=== PATIENT | female | born 1975 | race Caucasian/White ===

== ENCOUNTER 2016-03-17 10:57 | Inpatient (IN) | payer OTHER ==
[~2016-03-17] VITALS: Ht 157.5 cm; Wt 74.3 kg
--- NOTE | ~2016-03-17 | TXPLANREV ---
"PATIENT: RAGHU ZARATE | | [facility] UNIT #: [id number] | [address] AGE/SEX: 41 F : 71 | [address] | [place] [address] ADMIT/REG DATE: 03/17/16 | [facility] | Treatment Plan/Staffing Review Date: 07 APRIL 2016 Treatment plan was reviewed and determined appropriate as written: TREATMENT PLAN IS APPROPRIATE WRITTEN. Treatment plan was reviewed and the following changes/addition/deletions are necessary: NO CHANGES/ADDITIONS/DELETIONS ARE NECESSARY. Discharge plans were reviewed and determined appropriate as previously documented: DISCHARGE PLANS ARE APPROPRIATE PREVIOUSLY DOCUMENTED. Discharge plans were reviewed and determined to be as follows: TENTATIVE DISCHARGE DATE ISD 14 APRIL 2016. Other pertinent issues discussed during this staffing review include: CLIENT IS COMPLETING STEP ONE, WORKING ON LETTING GO OF THE NEED TO CONTROL & FEELINGS LETTERS. SHE CONTINUES TO GAIN INSIGHT EVIDENCED BY HER WILLINGNESS TO OWN DRINKING/ DRUGGING BEHAVIORS THAT HAVE NEGATIVELY IMPACTED HER LIFE. CLIENT'S SIGNIFICANT OTHER ATTENDED ONE SESSION OF FAMILY GROUP AND HER SON(S) PLAN TO ATTEND FAMILY EDUCATION ON 04/08. Staff Present: EUGENIA GOODRICH PRIMARY COUNSELOR: MELODIE BOOGIE [facility] Client Signature Counselor Signature Date Time "
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
--- NOTE | ~2016-03-17 | INDIVTXPLN ---
"PATIENT: BECKY ZARATE | | [facility] UNIT #: [id number] | [address] AGE/SEX: 41 F : 71 | [address] | [place] [address] ADMIT/REG DATE: 03/17/16 | [facility] | Individualized Treatment Plan Date: 01 APRIL 2016 Problem Statement/Issue Identified: BECKY IDENTIFIES A BELIEF IN GOD BUT HAS TURNED TO DRUGS/ALCOHOL TO HELP HER COPE WITH LIFE STRESSORS AND CHALLANGES. Goal: BECKY WILL WORK ON BUILDING A CLOSER, PERSONAL RELATIONSHIP WITH HER HIGHER POWER AND BEGIN TO UNDERSTAND THE IMPORTANCE OF SPIRITUALITY A FOUNDATION FOR HER RECOVERY. Objectives/Activities to achieve goal: 1. Becky will read LETTING GO OF THE NEED TO CONTROL highlighting thinking and behaviors that parallel her own life and experience. She will discuss these and insights gained with her primary counselor. Due Date: Complete: Incomplete: 2. Becky will attend all SPIRITUALITY EDUCATION and share new insights gained from these sessions with her primary counselor. Due Date: Complete: Incomplete: Client signature Date Counselor signature Date Outcome/Measurement of Progress Towards Goal: Counselor's signature Date "
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
--- NOTE | 2016-03-17 10:31 | NUR ---
SPIRITUAL EDUCATION 1 HR. Topics today were on getting out of self centered behavior and recovery slogans. Clients made BB bookmarks w slogans and also anonymously wrote welcoming letters for newcomers.
--- NOTE | 2016-03-17 13:38 | NUR ---
ADMISSION NOTE Rights/Responsibilities: Copy given and explained to client. Signed and accepted by client. Client oriented to physical lay out of the ADTC unit, given Big Book and admission packet. A Jh was assigned. Sailaja Client is a 41yr old female. Referred by probation. Brought to tx by s/o. Lives in [place], [place]. DOC Meth, last used 03/15/16, two hits. No allergies, No meds. Family participation maybe. Was searched no contraband found. Initial paperwork given and guidelines gone over. Doctor was notified.
--- NOTE | 2016-03-17 20:42 | NUR ---
Education: 1 hour lecture on boundaries given by counselor
--- NOTE | 2016-03-17 22:26 | NUR ---
Tech note : Client participated in rec by playing catch phrase and attended an onsite NA meeting. Client was checked in to her room and did her first introduction. SE; entering treatment on her birthday
--- NOTE | 2016-03-18 03:54 | NUR ---
Bed note : Client was motionless and in no distress at all bed checks.
--- NOTE | 2016-03-18 10:32 | NUR ---
Tech Note: Client participated in light stretching for morning exercise. Client stated that she is working on, "How to Get Started in Treatment."
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
--- NOTE | 2016-03-18 12:11 | NUR ---
FAMILY NOTE: Client states that her boyfriend or 3 years, will probably participate in her treatment but won't have minutes on phone until tomorrow when he gets paid. I will attempt to reach him Tuesday.
--- NOTE | 2016-03-18 13:57 | NUR ---
Education 1 Hour: Client watched the vidoe, "Predator" by Etienne Moulton.
--- NOTE | 2016-03-18 15:51 | NUR ---
Step education/1 hr/ Focus was on step 12 Having had a spiritual awakening as a result of these steps... Each person completed some questions on paper and then we discussed answers. This client participated. she got emotional as she shared.
--- NOTE | 2016-03-18 21:01 | NUR ---
Education: 1 Hour. Client attended "Spiritual Awakening" video.
--- NOTE | 2016-03-18 23:08 | NUR ---
Tech Note: Client played a game for recreation and attended onsite A.A. Meeting. SE: One on One with counselor
--- NOTE | 2016-03-19 04:16 | NUR ---
Tech Note: Client was motionless with no distress at all bed checks.
--- NOTE | 2016-03-19 14:13 | NUR ---
FAMILY NOTE: Efforts made to reach client's SO to no avail. Unable to leave a msg.
--- NOTE | 2016-03-19 14:30 | NUR ---
PEER REVIEWS 1 HR: Clt participated in peer review process and was able to give open and honest feedback to those receiving a review.
--- NOTE | 2016-03-19 15:53 | NUR ---
Tech Note: Client joined in outdoor group walk, watched "Marijuana" video (by Etienne Moulton) and is working on Getting Started.
--- NOTE | 2016-03-19 16:38 | NUR ---
Morning Group, 02/15, 1.5 hours, Client attended and actively participated in group.
--- NOTE | 2016-03-19 23:24 | NUR ---
TECH NOTE: Client participated in reading guidelines, watched tv/movies SE: walk
--- NOTE | 2016-03-20 04:23 | NUR ---
Bed Note: Clt lay motionless in bed with eyes closed showing no distress at all bed checks.
--- NOTE | 2016-03-20 16:12 | NUR ---
Tech Note: Client attended an off-site AA meeting. Client stated that she is working on, "How to Get Started in Treatment." Client received visitors.
--- NOTE | 2016-03-20 20:07 | NUR ---
TECH NOTE: Client played Charades in REC, attended off site AA meeting and watched tv/movies SE: visitors
--- NOTE | 2016-03-21 04:43 | NUR ---
Bed Note: Clt lay motionless in bed with eyes closed showing no distress at first two bed checks. The last bed check clt looked at tech.
--- NOTE | 2016-03-21 14:51 | NUR ---
Tech Note: Client stated that she is working on, " How to Get Started in Treatment." Client received visits.
--- NOTE | 2016-03-21 23:23 | NUR ---
Tech Note: Client attended A.A.Panel. Client was redirected for having foot on chairs. Client watched movies. Client attended CONSTRUCTION DRILLER meeting. SE: All Day
--- NOTE | 2016-03-22 04:32 | NUR ---
Bed Note: Clt lay motionless in bed with eyes closed showing no distress at second and third bed checks. Client looked at tech on first bed check.
--- NOTE | 2016-03-22 09:50 | NUR ---
Tech Notes: Client is working on BB.
--- NOTE | 2016-03-22 11:30 | NUR ---
Group 1.5 hr/ 8:1 Clients heard peers share GS packet and letters, this client was involved in relating and feedback.
--- NOTE | 2016-03-22 13:49 | NUR ---
lisbeth note: Client attended speaker Kevin Leiva
--- NOTE | 2016-03-22 15:59 | NUR ---
Recovery 101 1hr/ Clients all filled out Questionaire on consequences of their any of the chemicals they have used to help dispel any minimizing. Some clients discussed relating to most all of the consequences, all discussed early stage symptoms of addiction they would of had in first 1-2 years of use, discussed early/middle/late stages, disease concept and a definition of addiction that includes all stages (focussed on the loss of control and risking further problems). Many asked good questions and shared personal
--- NOTE | 2016-03-22 22:50 | NUR ---
Tech Note: Client worked on beaded projects for rec and attended N.A.Meeting. SE: Group, Beading, and N.A.Meeting.
--- NOTE | 2016-03-22 23:05 | NUR ---
Education Note: One hour lecture on adult children of alcoholics given by counselor.
--- NOTE | 2016-03-23 04:08 | NUR ---
Bed Note: Client was in bed with eyes closed and motionless at all bed checks.
--- NOTE | 2016-03-23 12:21 | NUR ---
GROUP 1.5 HRS. 1:10 Clients participated in orienting new peer to purpose and rules of group. Peer processed from his step 1 assignment identifying effects on social life (pg. 6) and destructive behavior towards oneself and others (pg. 7). This client offered supportive feedback to peer and encouraged him to set boundaries.
--- NOTE | 2016-03-23 14:50 | NUR ---
Tech Note: Client participated in group walk for exercise, watched the first half of [facility] for education and is working on the Big Book.
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
--- NOTE | 2016-03-23 16:42 | NUR ---
Education Note: Client participated in Relapse Prevention education.
--- NOTE | 2016-03-23 17:05 | NUR ---
FAMILY CONTACT: Talked with client's Significant Other. He did not talk as though he will be able to attend FAMILY ED, but said he could probably do a Tuesday night. He has not received his Family Packet yet so said he would get back to me when we can go over it together.
--- NOTE | 2016-03-23 18:22 | NUR ---
Education: 1 HOUR. Client attended "Codependency" lecture given by staff.
--- NOTE | 2016-03-23 22:29 | NUR ---
TECH NOTE: Client played Catch Phrase for REC, participated in Guided Meditation, and attended AA meeting. SE: meeting with counselor
--- NOTE | 2016-03-24 04:35 | NUR ---
tech note: client was motionless in no distress @ all bed checks.
--- NOTE | 2016-03-24 11:19 | NUR ---
Tech notes: Client is working on Step 1 and Sinkin Thinkin.
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
--- NOTE | 2016-03-24 13:20 | NUR ---
Education note: Client attended speaker Mele for education.
--- NOTE | 2016-03-24 15:00 | NUR ---
INDIVIDUAL SESSION 1 HR: Met with client to go over INITIAL INDIVIDUALIZED PROBLEM/NEEDS LIST, TREATMENT PLAN GOALS AND OBJECTIVES. Client read through her new plan and signed all copies. Client had questions about her Step One which I was able to clarify for her. She also asked about how aftercare recommendations are determined. Staff explained that we don't normally recommend a group home house when it is a client's first treatment episode. Client verbalized relief as she is wanting to return home and do outpatient aftercare here at [facility]. Client verblized that she is hoping to move to [place] to find a better job. Session 03/26
--- NOTE | 2016-03-24 16:15 | NUR ---
SPIRITUAL EDUCATION 1 HR. We oriented newcomers to spirituality group, and todays activities were putting on presentations from parts of TOWARDS SPIRITUALITY book.
--- NOTE | 2016-03-24 23:18 | NUR ---
tech note: Client played Pictionary for recreation & attended onsite NA meeting. Client had cigarettes dropped off & lighters. SE: All day.
--- NOTE | 2016-03-24 23:31 | NUR ---
Eduction: 1 Hour. Client attended "Disease Concept" lecture.
--- NOTE | 2016-03-25 05:40 | NUR ---
tech note: Client was motionless in no distress at all bed checks.
--- NOTE | 2016-03-25 10:25 | NUR ---
Tech Note: Client participated in Spiritual Enrichment. Client stated that she is working on "Stinkin' Thinkin" and Step One.
--- NOTE | 2016-03-25 11:55 | NUR ---
Group 1.5 Hr Ratio 1:11/Topics today were orientating two new members to group rules and goals. A feelings letter and dealing with anger. Client shared how she did not deal with anger very well as she would stuff it or blow up. Client also shared how she cries a lot but it helps her release stuff.
--- NOTE | 2016-03-25 15:35 | NUR ---
Education 1 Hour: Client heard a panel of speakers from the local recovery community, who shared their experience, strength and hope.
--- NOTE | 2016-03-25 16:01 | NUR ---
Step education/1 hr/ Focus was on step one. Each person completed a worksheet on this topic and then chose 4 from sheet to share out loud. This person participated.
--- NOTE | 2016-03-25 23:25 | NUR ---
TECH NOTE: Client redecorated the building for [employer], participated in Guided Meditation and attended on-site AA meeting. SE: group
--- NOTE | 2016-03-26 04:38 | NUR ---
Bed Note: Clt lay motionless in bed with eyes closed showing no distress at first two bed checks. Clt was in restroom third bed check.
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
--- NOTE | 2016-03-26 11:30 | NUR ---
PEER REVIEWS, 1 HR: Clt participated in peer review process and was able to give open and honest feedback to those receiving a review.
--- NOTE | 2016-03-26 15:51 | NUR ---
Tech Note: Client watched the second half of Pleasure Unwoven for education and is working on Step 1 and Agustina Moorein.
--- NOTE | 2016-03-26 20:35 | NUR ---
Tech note: client watched tv and movies, attended optional offsite AA mtg SE:mtg w/counselor
--- NOTE | 2016-03-27 04:38 | NUR ---
Bed note: client was in bed with eyes closed and no distess at all bed checks
--- NOTE | 2016-03-27 16:32 | NUR ---
Tech Note: Client attended N.A.Panel and is working on Stinking Thinking/Step One/Feelings Letters and also had a visit.
--- NOTE | 2016-03-27 20:16 | NUR ---
tech note: Client did service work at offsite location where clients attended the AA meeting. Client talked on the phone & watched tv. Client's S/O & son brought money & food items for the client. SE: visit.
--- NOTE | 2016-03-28 05:01 | NUR ---
Bed Note : Client had eyes closed and in no distress at all bed checks.
--- NOTE | 2016-03-28 16:38 | NUR ---
Tech Note: Client is working on step 1, abdelrahman holt, Had visitors, took nap and went to mandaeism
--- NOTE | 2016-03-28 23:41 | NUR ---
TECH NOTE: Client attended AA panel, participated in community clean and watched tv/movies. attended optional MANAGER DAIRY meeting. redirected for lounge pants in hallway. SE: all day
--- NOTE | 2016-03-28 23:50 | NUR ---
Tech note: client attended AA Panel & CAMERA PROTOTYPING ENGINEER.Client talked on the phone & watched tv. SE: visitors,AA & CAMERA PROTOTYPING ENGINEER.
--- NOTE | 2016-03-29 04:15 | NUR ---
BED NOTE: Client was in bed, motionless with eyes closed all three bed checks.
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
--- NOTE | 2016-03-29 10:41 | NUR ---
Tech notes: Client is working on Step 1, Agustina Gupta, Grief Letter.
--- NOTE | 2016-03-29 11:30 | NUR ---
Experiential Group 1.5 hr/ Clients all participated in family sculpturing by role-playing, feedback, and relating. They also shared what they needed to get help with and a gratitude. Client wants help with insight/get out of self and is grateful to be clean.
--- NOTE | 2016-03-29 13:32 | NUR ---
Education note: Client watched video "It can't happen to me"
--- NOTE | 2016-03-29 15:55 | NUR ---
CLIENT CONTACT: Client approached stating that SO can't come to Fam Ed due to job, but would come at 5:30P. We will have a FAMILY SESSION at that time.
--- NOTE | 2016-03-29 16:00 | NUR ---
RECOVERY 101 1 HR/ Clients learned about Fundamentals of recovery and tools from AA/NA. They participated by sharing what they hear at meetings that are important for their recovery like: working the steps, how to get and use sponsors, reading C.A.L. literature, service work, HP concept, opening up, slogans, using the Serenity Prayer, attending functions, what is closed and open meetings, etc.
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
--- NOTE | 2016-03-29 19:08 | NUR ---
Education 1HR: Clt attended lecture given by counselor on "Communication".
--- NOTE | 2016-03-29 20:46 | NUR ---
FAMILY GROUP 4:1/2HR: Client, peers and attending family members heard two peers process FEELINGS LETTERS. Most related to the behaviors and feelings described in the letters. This client attended with her Significant Other. He sat quietly throughout, but this client knows another peer and some of his family for a period of years and had lots of suggestions and feedback for the much younger peer, some of which may have been misguided. She was otherwise attentive and verbalized agreement to have letters ready to process next week and will hopefully have her son in attendence as well.
--- NOTE | 2016-03-29 22:40 | NUR ---
Tech note: Client participated in group by playing catch phrase. Client attended an onsite NA meeting. SE: All day
--- NOTE | 2016-03-29 22:52 | NUR ---
Tech Note : Client attende family SE: all day
--- NOTE | 2016-03-30 05:08 | NUR ---
Bed Note : Client was awake at first bed check, sitting uo in bed. She was motionless and had eyes closed at all other bed checks.
--- NOTE | 2016-03-30 11:46 | NUR ---
INDIVIDUAL SESSION 1 HR: Client processing from STEP ONE. Her responses are brief on many of her questions, but she is pretty willing to expand on them verbally. Client did seem to gain another level of understanding of "powerlessness & unmanagability" through the session and my probbing. I suggested that I was fearful as client kept talking about "cutting down" once she was on probabion. We examined her interaction with her children (spent much of her time at home in her room with door locked in spite of her kids protests), her performance at work, arriving late, taking 3x as long to perform an appointment, etc. probation, etc. By the time we stopped she was tearful and realizing that it was out of control. She will be working on FEELINGS LETTERS, STINKIN THINKIN & GRIEF PACKET on her dad through the weekend. Session 04/01
--- NOTE | 2016-03-30 16:37 | NUR ---
Tech Note: Client watched video The Enabler and is working on Feelings Letters.
--- NOTE | 2016-03-30 18:48 | NUR ---
Education: 1 Hour. Client attended presentation given by [facility] AIDS/STDS/HIV. HIV testing was available.
--- NOTE | 2016-03-30 20:15 | NUR ---
Relapse Prevention,02/26 1.0, Client attended and participated in relapse prevention education which focused on internal and external triggers.
--- NOTE | 2016-03-30 23:18 | NUR ---
Tech note: Client participated in rec by playing pictionary. Client went to guided meditation and attended an onsite AA meeting. SE: two weeks clean
--- NOTE | 2016-03-31 05:34 | NUR ---
tech note: client was motionless in no distress at all bed checks.
--- NOTE | 2016-03-31 09:15 | NUR ---
SPIRITUAL EDUCATION 1 HR. We started a two part education on Forgiveness today and group discussion on main points.
--- NOTE | 2016-03-31 10:21 | NUR ---
Tech Notes: Client is working on Nicho Guerin's.
--- NOTE | 2016-03-31 11:30 | NUR ---
GROUP 1.5 HRS. 1:10 Clients oriented new peer to purpose and rules of group. Peers processed HOW TO GET STARTED IN TREATMENT and STEP 1 ASSIGNMENTS including compromising values and effects on others. This client appeared attentive and offered appropriate feedback.
--- NOTE | 2016-03-31 23:29 | NUR ---
Tech note:Client participated in rec-worked on beaded projects SE:nazia mtg and speaking
--- NOTE | 2016-03-31 23:41 | NUR ---
Education: 1 hour lecture on step 2 & 3 given by counselor
--- NOTE | 2016-04-01 04:41 | NUR ---
Bed note: client was in bed with eyes closed and no distress at all bed checks.
--- NOTE | 2016-04-01 09:13 | NUR ---
SPIRITUAL EDUCATION 1 HR. We started a two part education on Forgiveness today and group discussion on main points.
--- NOTE | 2016-04-01 11:30 | NUR ---
Group 1.5hr/ 11:1 Clients all were attentive as peers shared GS packets and some shared how they relate. This client was sleepy first part of group but then was attentive.
--- NOTE | 2016-04-01 11:45 | NUR ---
INDIVIDUAL SESSION 1 HR: Client processing more of her STEP ONE. Continue to hear minimizing, rationalizing and justifying. Client tried to process Page 10 on COMPROMISING VALUES. Though client identified values that are important to her, she gave reasons for why they are important rather than examples of how she has compromised them. Staff worked to help her to be more specific but the most she would provide was being late to pick her kids up from school, but then would say that it was because things ran late at work. 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 I again questioned client about her teeth which are little more than stubs protruding from her gums. Client again insisted that her teeth looked the same long before she ever started using meth. Client said she had no dental care because she couldn't get on medicaid. Staff did tell her about the dental colleges in [place] & [place] and will provide more detailed information when she discharges. I did tell client that she needs to redo her Step One and examine all of her chemical use, not just the past year which she says she was doing. She verbalized willingness. I also gave her the DENIAL packet. Session 04/06
--- NOTE | 2016-04-01 14:22 | NUR ---
Education 1 Hour: Client heard a presentation on, "Marijuana."
--- NOTE | 2016-04-01 14:47 | NUR ---
FAMILY EDUCATION 3 HRS. Client attended alone and took part in the discussion on the disease concept. Client shared chemical history and the consequences.
--- NOTE | 2016-04-01 15:14 | NUR ---
Tech Note: Client participated in Spiritual Enrichment in the morning and walked in the halls for afternnon exercise. Client stated that she is working on writing a Grief Letter and Feelings Letters. Client participated in Family Group.
--- NOTE | 2016-04-01 23:06 | NUR ---
Tech Note: Client participated in rec and attended A.A.Meeting.
--- NOTE | 2016-04-01 23:24 | NUR ---
Education Note: Client watched the healthy families video which lasted an hour.
--- NOTE | 2016-04-02 04:50 | NUR ---
Bed note: Client was in bed with eyes closed and no distress at all bed checks
--- NOTE | 2016-04-02 11:30 | NUR ---
Group 1.5hr/ 11:1 Clients all were attentive as peers shared GS packets and some shared how they relate. This client was sleepy first part of group but then became attentive.
--- NOTE | 2016-04-02 14:57 | NUR ---
PEER REVIEWS 1 HR: Clt participated in peer review process and was able to give open and honest feedback to those receiving a review.
--- NOTE | 2016-04-02 15:05 | NUR ---
PEER REVIEWS 1 HR: Clt participated in peer review process and was able to give open and honest feedback to those receiving a review.
--- NOTE | 2016-04-02 16:34 | NUR ---
Tech Note: Client watched a video "How to Sabotage Your Treatment" and is working on Denial, Feelings Letters and Agustina Thinkin.
--- NOTE | 2016-04-02 23:56 | NUR ---
TECH NOTE: Client participated in guideline reading, watched tv/movies and used the phone. Attended off site optional AA meeting SE: peer review
--- NOTE | 2016-04-03 04:48 | NUR ---
BED NOTE: Client was awake first bed check and using restroom and final bed check.
--- NOTE | 2016-04-03 12:21 | NUR ---
PEER REVIEWS 1 HR: Clt participated in peer review process and was able to give open and honest feedback to those receiving a review.
--- NOTE | 2016-04-03 16:30 | NUR ---
Tech Note: Client went to AA mtg at [address] [place] [address]. Is working on Feelings Letters and Grieving.
--- NOTE | 2016-04-03 18:15 | NUR ---
Medication Note: Client took prn mucinex, benzonatate and cepacol, and ibuprophen for H/A rated at 7 at 0820.
--- NOTE | 2016-04-03 18:15 | NUR ---
Medication Note: Client took prn ibuprophen for H/A rated at 5 at 1245.
--- NOTE | 2016-04-03 20:06 | NUR ---
TECH NOTE: Client played Catch Phrase for REC, attended off site AA meeting, watched TV/movies and used phone. SE: visitors
--- NOTE | 2016-04-04 04:50 | NUR ---
Bed Note: Clt lay motionless in bed with eyes closed showing no distress at all bed checks.
--- NOTE | 2016-04-04 16:18 | NUR ---
Tech Note: Client participated in Big Book Study. Client stated that she is working on, "Denial." Client attended sikhism in the morning and received visitors in the afternoon.
--- NOTE | 2016-04-04 22:55 | NUR ---
TECH NOTE: Client attended AA panel, participated in community clean and watched tv/movies. attended cupola liner helper meeting, so was there SE: visits
--- NOTE | 2016-04-05 04:28 | NUR ---
Bed Note: Clt lay motionless in bed with eyes closed showing no distress at all bed checks.
--- NOTE | 2016-04-05 10:19 | NUR ---
Tech notes: Client is working on Fl's.
--- NOTE | 2016-04-05 11:30 | NUR ---
Morning Group, 02/17 ratio, 1.0 hours, Client attended and actively participated in group therapy. Becky shared how she has began to build a relationship with her sons again.
--- NOTE | 2016-04-05 12:44 | NUR ---
Education Note: Client attended educational speaker Kit on Crossaddiction.
--- NOTE | 2016-04-05 17:00 | NUR ---
FAMILY EDUCATION 3 HRS. Client attended alone and took part in the discussion on the family roles, codependency and detachment. She related to scapegoat and mascot roles and identified her kids.
--- NOTE | 2016-04-05 20:36 | NUR ---
Education: 1 hour lecture on feelings given by counselor
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
--- NOTE | 2016-04-05 23:48 | NUR ---
Tech Note: Client was in Family SE: All Day
--- NOTE | 2016-04-06 04:04 | NUR ---
bed note: client was in bed with eyes closed and no distress at all bed checks.
--- NOTE | 2016-04-06 11:30 | NUR ---
GROUP 1.5 HRS. 1:9 Group discussion included how to deal with feelings appropriately and relapse triggers. This client defended female peer's defense that she does not need to write grief letter because it has been so many years ago since the of her child.
--- NOTE | 2016-04-06 15:00 | NUR ---
BIG GRP 5:21/ We had a big grp to confront sleeping pills being on the unit, dishonesties, and anything else going on that needed to be addressed. Clt denied knowing someone had brought anything on the unit. She sat mostly quiet, and offered little feedback. She was, however, confronted for having them and offering them to someone, as she has some in her purse. She advised she wasn't going to do it w/o permission.
--- NOTE | 2016-04-06 15:16 | NUR ---
Education Note: Client heard a presentation on, "Grief."
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
--- NOTE | 2016-04-06 16:30 | NUR ---
Tech Note: Client particiapted in light stretching for morning exercise and walked in the halls in the afternoon. Client stated that he is working on writing Feelings Letters and "Grief."
--- NOTE | 2016-04-07 00:08 | NUR ---
Education: 1 hour lecture given by Counselor on Step 1
--- NOTE | 2016-04-07 00:24 | NUR ---
Tech note: client worked on projects for the alumni dolores for rec and attended AA meeting SE: 3 weeks clean
--- NOTE | 2016-04-07 04:18 | NUR ---
Bed Note: Clt lay motionless in bed with eyes closed showing no distress at all bed checks.
--- NOTE | 2016-04-07 10:32 | NUR ---
Tech Notes: Client is working on Fl's.
--- NOTE | 2016-04-07 12:24 | NUR ---
AM GROUP 11:02/07.5 HR: Client and peers helped to ORIENT NEW PEER TO GROUP GUIDELINES, GOALS AND PURPOSE. Client and peers heard several group members process assignments. Many of the examples given focused on neglect of their children and various clients related to this and shared personal feedback. This client processed PAGES 10 & 11 from her STEP ONE. Client did ok with this though there were several duplications. Client was confronted by peers for striking up a new relationship with someone at meetings, though client is supposedly still in a 6 year relationship. Client admitted that she has issues with men.
--- NOTE | 2016-04-07 13:28 | NUR ---
Education note: Client attended education by [facility]
--- NOTE | 2016-04-07 17:52 | NUR ---
SPIRITUAL EDUCATION 1 HR. Today we discussed ways to quiet the mind and meditation and creativity.
--- NOTE | 2016-04-07 23:25 | NUR ---
tech note: Client played a game for recreation & attended onsite NA meeting. SE: leaving next tuesday.
--- NOTE | 2016-04-08 02:19 | NUR ---
Education: 1 Hour. Client attended "Unresolved Anger" video & discussion presented by staff.
--- NOTE | 2016-04-08 05:00 | NUR ---
BED NOTE: Client waved at tech at 2 am check. Client was in bed motionless with eyes closed all other bed checks.
--- NOTE | 2016-04-08 11:36 | NUR ---
Group 1.5hours 1:11 Clients shared assignments from their Getting Started packet and feelings letters. Client sat quietly for most of group but offered some feedback to peers. Student: Olamide Gamboa
--- NOTE | 2016-04-08 12:58 | NUR ---
Tech Note: Client participated in Spiritual Enrichment. Client stated that she is working on writing Feelings Letters.
--- NOTE | 2016-04-08 13:09 | NUR ---
Education 1 Hour: Client heard a presentation from a member of the recovery community, who shared his experience, strength and hope.
--- NOTE | 2016-04-08 16:00 | NUR ---
INDIVIDUAL SESSION 1 HR: Client expressing sad and disappointed feelings that sons did not make it for Family Education today. I was explaining that as long as she is an outpatient here, they could come and do Family even this Summer when they are not in school. She was relieved and pleased with this. Client did share the beginnings of her UNFINISHED BUSINESS/GRIEF letter to her dad. She has a good start on it and said she was surprised that once she "put pen to paper," the words/feelings just came pouring out. About that time, the Family counselor knocked at my door to let me know that client's sons were here so client joined them in family. Session tomorrow.
--- NOTE | 2016-04-08 16:53 | NUR ---
FAMILY EDUCATION 3 HRS. Client was accompanied by her two sons. They took part in the discussion on the disease concept. Client shared chemical history and the consequences and was tearful as she shared that she isolated and missed time with her kids. Oldest son said it was "fine" while youngest said it was "lonely".
--- NOTE | 2016-04-08 20:22 | NUR ---
Education 1HR: Clt watched video by Kishore Garcia on Step 5.
--- NOTE | 2016-04-08 22:40 | NUR ---
TECH NOTE: Client played Catch Phrase for REC, participated in Guided Meditation and attended onsite AA meeting. became upset at community meeting. SE: all day
--- NOTE | 2016-04-09 04:28 | NUR ---
Bed Note: Clt lay motionless in bed with eyes closed showing no distress at all bed checks.
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
--- NOTE | 2016-04-09 13:00 | NUR ---
PEER REVIEWS 1.25 HRS: Kathryn participated in peer reviews and received her own. SHe heard she tries to buy her friends, is hurt, angry, sad, resentful, is codependent, picks the things she wants to deal with that aren't as painful, tries to make others happy first, has shame and guilt, likes to get what she wants at the cost of herself and her kids, and is selfish. She felt glad, sad, mad and ashamed.
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
--- NOTE | 2016-04-09 15:53 | NUR ---
Tech Note: Client watched a video "It Can't Happen To Me" and is working on the Big Book.
--- NOTE | 2016-04-09 22:47 | NUR ---
Tech note : Client watched tv, played games and talked on the phone. Client walked to an offsite AA meeting. SE; EMDR
--- NOTE | 2016-04-10 05:02 | NUR ---
Bed note: Client was in bed with eyes closed and no distress at all bed checks.
--- NOTE | 2016-04-10 15:43 | NUR ---
Tech Note: Client attended N.A.Panel and is working on FL's
--- NOTE | 2016-04-10 20:49 | NUR ---
tech note: client played game for recreation & attended offsite AA meeting.Client talked on the phone & watched tv. SE: Family.
--- NOTE | 2016-04-11 16:06 | NUR ---
Tech Note: Client is working on FL's. She had visits and attended adventism.
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
--- NOTE | 2016-04-11 22:30 | NUR ---
Tech note:Watched Tv and Movies. Participated in community clean, attended AA panel with Antonino Dawson. Attended optional FRUIT OR NUT CROPS FARM MANAGER meeting SE FRUIT OR NUT CROPS FARM MANAGER
--- NOTE | 2016-04-12 05:00 | NUR ---
Bed note: Client was in bed with eyes closed and no distress at all bed checks.
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
--- NOTE | 2016-04-12 13:28 | NUR ---
Education note: Client attended education speaker Mercedes on Tobacco.
--- NOTE | 2016-04-12 14:20 | NUR ---
Tech Note: client is working on Fl's.
--- NOTE | 2016-04-12 18:05 | NUR ---
Education: 1 Hour. Client attended "Forgiveness" lecture presented by staff.
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
--- NOTE | 2016-04-12 23:19 | NUR ---
tech note: client played a game for recreation & attended onsite NA meeting. SE: NA meeting.
--- NOTE | 2016-04-13 04:35 | NUR ---
tech note: client was motinless in no distress at all bed checks.
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
--- NOTE | 2016-04-13 15:43 | NUR ---
Tech Note: Client attended programming on Relapse Prevention and is working on Feelings Letters and the Big Book.
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
--- NOTE | 2016-04-13 16:26 | NUR ---
Relapse Prevention, 03/01 ration, 1.0 hours, Client attended and participated in relapse prevention education which focused on relapse triggers/issues.
--- NOTE | 2016-04-13 22:26 | NUR ---
TECH NOTE: Client attended Alumni meeting and on-site AA meeting. Last day, was given luggage and discharge prepared. SE: AA meeting
--- NOTE | 2016-04-13 22:56 | NUR ---
EDUCATION NOTE: 1HR lecture on Shame given by counselor
--- NOTE | 2016-04-14 04:45 | NUR ---
Bed note: Client was in bed with eyes closed and no distress at all bed checks.
--- NOTE | 2016-04-14 10:09 | NUR ---
Tech note: Client is working on BB and mtg with elizabeth
--- NOTE | 2016-04-14 11:58 | NUR ---
AM GROUP .5 HR: Client and peers helped to ORIENT TWO NEW CLIENTS TO GROUP GUIDELINES, GOALS AND OBJECTIVES. Several clients had assignments to process. This generated a lot of feedback and different individuals sharing from their own experience. Various examples of behaviors and values compromised were addressed with much of the focus on values compromised, how kids become the innocent victims of this disease and how painful but necessary it is to have to look at the reality of those consequences. Client sharing about facing her own reality of how her kids have been affected by her addiction.
--- NOTE | 2016-04-14 12:46 | NUR ---
Education note: Client attended speaker Robby Guzman
--- NOTE | 2016-04-14 13:09 | NUR ---
DISCHARGE NOTE Client left tx in her own car, all personal belongings were sent with. Discharge instructions gone over and copy given.
--- NOTE | 2016-04-14 14:02 | NUR ---
FINAL RESIDENTIAL SESSION 1 HR: Completed CONTINUED CARE PLAN. Client will return for her first outpatient session 04/22. Her group is undetermined. Presented medallion.
--- NOTE | 2016-04-21 20:15 | NUR ---
Outpatient Group, 1.0 hours, 1/8 ratio, Client attended and actively participated in group. Client shared how the week went and any issues they had.
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
== END 2016-04-14 13:10 | disposition home or self-care (01) | DRG 895 ==
LOC: ADTC 10:57
PROVIDERS: ADMIT Family Medicine
PROC: HZ43ZZZ Group Counseling for Substance Abuse Treatment, 12-Step (ICD-10-PCS; principal; 2016-03-17)
PROC: HZ63ZZZ Family Counseling for Substance Abuse Treatment (ICD-10-PCS; principal; 2016-03-17)
PROC: HZ34ZZZ Individual Counseling for Substance Abuse Treatment, Interpersonal (ICD-10-PCS; principal; 2016-03-17)
DX: F15.20 Other stimulant dependence, uncomplicated (principal); F39 Unspecified mood [affective] disorder; E66.09 Other obesity due to excess calories; F17.210 Nicotine dependence, cigarettes, uncomplicated; Z65.3 Problems related to other legal circumstances; Z56.0 Unemployment, unspecified